=== PATIENT | female | born 1965 | race Caucasian/White ===

== ENCOUNTER 2018-03-22 14:29 | Emergency (ER) | payer OTHER ==
--- NOTE | 2018-03-22 14:37 | PDOC ---
History of Present Illness - General Chief Complaint: Back Pain Stated Complaint: back pain - History of Present Illness Initial Comments: The pt is a 53F w/ a history of migraines who presents for evaluation of 1.5 wks of L lower back pain, stabbing, worse w/ movement, non-radiating 5/10 initally to 10/10 today. She states the pain was initially intermittent but is now constant. She states she is reasonably comfortable while sitting and still but the pain is now unbearable when standing from sitting. She has tried Naproxen, heating/icy pads, and stretches w/o relief. She reports a history of back pain prior to menses, but this is worse than ever before. Additionally, the pain usually subsides with the initiation of menses and she is on her third day currently. Denies fevers/chills, BOND, vision changes, chest pain, SOB, N/V/C/D, dysuria, hematuria, or changes in sensation PCP: Dr. Maryam Fall 03/22/18 14:50 Past History - Past Medical History Allergies/Adverse Reactions: Allergies Allergy/AdvReac Type Severity Reaction Status Date / Time No Known Allergies Allergy Verified 03/22/18 14:57 Home Medications: Ambulatory Orders Sumatriptan Succinate [Imitrex] 50 mg PO BID PRN [facility] 2 05/31/15 Diazepam [Valium] 5 mg PO BID #6 tablet [facility] 2 03/22/18 Naproxen 375 mg PO QID PRN 03/22/18 Tramadol HCl 50 mg PO BID #6 tablet [facility] 2 03/22/18 Anemia: No Asthma: No Cancer: No Cardiac Disorders: No CVA: No COPD: No CHF: No Dementia: No Diabetes: No GI Disorders: Yes (Hx of N/V Diarrhea after vacation in [place]) Disorders: No HTN: No Hypercholesterolemia: No Kidney Stones: Yes Liver Disease: No Psychiatric Problems: Yes (ANXIETY/DEPRESSION) Seizures: No Thyroid Disease: No - Surgical History Cholecystectomy: Yes - Suicide/Smoking/Psychosocial Hx Smoking History: Never smoked Have you smoked in the past 12 months: No Hx Alcohol Use: No Drug/Substance Use Hx: No Substance Use Type: None Hx Substance Use Treatment: No Review of Systems - Review of Systems Able to Perform ROS?: Yes Comments:: GENERAL/CONSTITUTIONAL: No fever or chills. No weakness HEAD, EYES, EARS, NOSE AND THROAT: No change in vision. No ear pain or discharge. No sore throat CARDIOVASCULAR: No chest pain or shortness of breath RESPIRATORY: Denies cough, hemoptysis GASTROINTESTINAL: No nausea, vomiting, diarrhea or constipation GENITOURINARY: No dysuria, frequency, or change in urination. MUSCULOSKELETAL: per HPI SKIN: No rash NEUROLOGIC: No headache, vertigo, loss of consciousness, or change in strength/ sensation ENDOCRINE: No increased thirst. No abnormal weight change HEMATOLOGIC/LYMPHATIC: No anemia, easy bleeding, or history of blood clots ALLERGIC/IMMUNOLOGIC: No hives or skin allergy 03/22/18 14:37 Is the patient limited Czech proficient: No *Physical Exam - Vital Signs Vital Signs Temp Pulse Resp BP Pulse Ox 98.5 F 94 H 18 152/93 100 03/22/18 14:30 03/22/18 14:30 03/22/18 14:30 03/22/18 14:30 03/22/18 14:30 03/22/18 17:19 - Physical Exam Comments: GENERAL: Awake, alert, and fully oriented, in no acute distress HEAD: No signs of trauma, normocephalic, atraumatic EYES: PERRLA, EOMI, sclera anicteric, conjunctiva clear ENT: Hearing grossly normal, nares patent, oropharynx clear without exudates. Moist mucosa LUNGS: No distress, speaks full sentences, clear to auscultation bilaterally HEART: Regular rate and rhythm, normal S1 and S2, no murmurs appreciated, peripheral pulses normal and equal bilaterally ABDOMEN: Soft, nontender, normoactive bowel sounds. No guarding, no rebound. No masses BACK: L lateral lumbar back pain/TTP that is worse when patient stands; unable to ambulate w/ normal gait 2/2 pain; pain worse with L straight leg raise EXTREMITIES : Normal inspection, Normal range of motion, no edema. No clubbing or cyanosis NEUROLOGICAL: Cranial nerves II through XII grossly intact. Normal speech, no focal sensorimotor deficits SKIN: Warm, Dry, normal turgor, no rashes or lesions noted 03/22/18 14:37 ED Treatment Course - LABORATORY CBC & Chemistry Diagram: 03/22/18 15:25 03/22/18 15:25 Medical Decision Making - Medical Decision Making The patient is a 53F w/ a history of migraines who presents for evaluation of 1.5 wks of non-radiating, sharp, L lower back pain. ED Course CMP, CBC, UA, Upreg CT A&P w/ IV contrast 03/22/18 15:20 No leukocytosis No anemia Lytes wnl No ANIRUDH LFTs wnl UPreg neg UA w/o evidence of UTI 03/22/18 17:20 CT w/o evidence of acute pathology 03/22/18 17:43 Rx for Valium and Tramadol Discharge instructions and return precautions given Plan for D/C w/ PCP f/u Patient in agreement and verbalized understanding Dispo: Home *DC/Admit/Observation/Transfer Diagnosis at time of Disposition: Back pain Qualifiers: Back pain location: low back pain Chronicity: acute Back pain laterality: left Sciatica presence: without sciatica Qualified Code(s): M54.5 - Low back pain - Discharge Dispostion Disposition: HOME Condition at time of disposition: Stable Decision to Admit order: No - Prescriptions Prescriptions: Diazepam [Valium] 5 mg PO BID #6 tablet MDD 2 Tramadol HCl 50 mg PO BID #6 tablet MDD 2 - Referrals Referrals: Maryam Fall [Other] - Patient Instructions Printed Discharge Instructions: DI for Low Back Pain Additional Instructions: You were seen in the Emergency Department today for evaluation of lower back pain. Your labs were normal and your CT scan was negative for acute findings. You were given a prescription for Tramadol and Valium, take as directed. You may also take Naproxen 500mg every 12 hours. Review the handout provided at discharge. Follow up with your primary care provider, call for an appointment tomorrow. Return to the Emergency Department if you develop fevers/chills, vision changes , worsening pain, bowel or bladder incontinence, or any new/concerning symptoms. - Post Discharge Activity Forms/Work/School Notes: Back to Work
[2018-03-22 14:55] VITALS: TEMP 98.5; BMI 27.4
[2018-03-22] MEDS ORDERED: ACETAMINOPHEN 325 MG TABLET (FP) PO ONE (15:11)
[2018-03-22] MEDS ORDERED: diazePAM 2 MG TABLET PO ONE (15:12)
[2018-03-22] MEDS ORDERED: KETOROLAC TROMETHAMINE 30 MG/1 ML VIAL IM ONE (15:13)
[2018-03-22] MEDS ORDERED: ACETAMINOPHEN 325 MG TABLET (FP) ONE (15:15)
[2018-03-22] MEDS ORDERED: KETOROLAC TROMETHAMINE 30 MG/1 ML VIAL ONE (15:16)
[2018-03-22] MEDS ORDERED: diazePAM 2 MG TABLET ONE (15:16)
[2018-03-22] MEDS ORDERED: KETOROLAC TROMETHAMINE 30 MG/1 ML VIAL IVPUSH ONE (15:18)
[2018-03-22] MEDS ORDERED: SODIUM CHLORIDE 0.9% 500 ML INFUS.BAG IV ONE (15:23)
[2018-03-22 15:36] LABS: BASO % 0.8 % (0-2.0); EOS % 3.2 % (0-4.5); HEMATOCRIT 38.1 % (32.4-45.2); HEMOGLOBIN 12.5 GM/dl (10.7-15.3); LYMPH % 31.5 % (8-40); MCH 28.6 pg (25.7-33.7); MCHC 32.7 g/dl (32.0-36.0); MEAN CELL VOLUME 87.4 fl (80-96); MEAN PLT VOLUME 7.7 fl (7.5-11.1); MONO % 7.1 % (3.8-10.2); NEUT % 57.4 % (42.8-82.8); PLATELET COUNT 330 K/MM3 (134-434); RBC 4.36 M/mm3 (3.60-5.2); RDW 13.3 % (11.6-15.6); WHITE BLOOD COUNT 5.7 K/mm3 (4.0-10.8)
[2018-03-22 15:37] LABS: URINE APPEARANCE Clear; URINE BILIRUBIN Negative (NEGATIVE); URINE COLOR Yellow; URINE GLUCOSE (UA) Negative (NEGATIVE); URINE KETONE Negative (NEGATIVE); URINE LEUK ESTERASE Negative (NEGATIVE); URINE NITRITE Negative (NEGATIVE); URINE PROTEIN Negative (NEGATIVE); URINE UROBILINOGEN 0.2 (0.2-1.0)
[2018-03-22 15:49] LABS: ALK PHOS 75 U/L (45-117); ANION GAP 9 MMOL/L (8-16); BILIRUBIN,TOTAL 0.4 mg/dl (0.2-1); BLOOD UREA NITROGEN 11 mg/dl (7-18); CALCIUM 9.3 mg/dl (8.5-10); CHLORIDE 102 mmol/L (98-107); CO2 25 mmol/L (21-32); CREATININE 0.6 mg/dl (0.55-1.3); GLUCOSE,RANDOM 104 mg/dl (74-106); POTASSIUM 4.1 mmol/L (3.5-5.1); SGOT/AST 23 U/L (15-37); SGPT/ALT 23 U/L (13-61); SODIUM 136 mmol/L (136-145)
--- NOTE | 2018-03-22 17:33 | PDOC ---
Attending Attestation - Resident Resident Name: EdHarpreet locke - ED Attending Attestation I have performed the following: I have examined & evaluated the patient, The case was reviewed & discussed with the resident, I agree w/resident's findings & plan, Exceptions are as noted - HPI HPI: 03/22/18 17:32 Reviewed residents HPI - Physicial Exam PE: 03/22/18 17:32 Reviewed residents PE - Medical Decision Making 03/22/18 17:32 53 years old with moderate to severe left mid paraspinal discomfort progressively worsening over the course of the week. No weakness no numbness no significant abdominal tenderness but some reproducible left-sided abdominal tenderness on examination Given progressively worsening symptomatology we will CT abdomen pelvis pain meds observe and reassess 03/22/18 19:07 Reevaluation patient feels better after pain medication CAT scan negative for acute pathology no fever no white count urinalysis is clean at this time history examination most consistent with musculoskeletal pain We'll treat with by mouth tramadol Valium as an outpatient for 3 days she will call her doctor tomorrow for follow-up she'll return to ED for any severe worsening symptoms or for any concerns.
[2018-03-22 17:43] LABS: URINE RBC 0-2 /hpf (0-3)
[2018-03-22 17:51] VITALS: BP 134/92; PULSE 78
== END 2018-03-22 18:04 | disposition home or self-care (01) ==
LOC: FER 14:29
PROC: 3E0333Z Introduction of Anti-inflammatory into Peripheral Vein, Percutaneous Approach (ICD-10-PCS; principal; 2018-03-22)
PROC: 3E0337Z Introduction of Electrolytic and Water Balance Substance into Peripheral Vein, Percutaneous Approach (ICD-10-PCS; 2018-03-22)
DX: M54.5 Low back pain (principal); F41.8 Other specified anxiety disorders
CPT/HCPCS: 36415; 74177-TC; 80053; 81003; 81015; 84703; 85025; 99283-25

== ENCOUNTER 2020-01-24 17:32 | Emergency (ER) | payer OTHER | END 2020-01-24 18:02 | disposition home or self-care (01) | LOC: JVIRT 17:32 | DX: Z11.59 Encounter for screening for other viral diseases (principal) | CPT/HCPCS: C9803; Q3014-GT; U0003 ==

== ENCOUNTER 2020-06-26 11:17 | Emergency (ER) | payer OTHER ==
[2020-06-26] MEDS ORDERED: IBUPROFEN 400 MG TABLET (FP) PO ONE ×2 (11:24→11:28)
[2020-06-26 11:28] VITALS: BP 169/109; PULSE 88; TEMP 98.9; BMI 25.0
[2020-06-26] MEDS ORDERED: PSEUDOEPHEDRINE HCL 30 MG TABLET PO ONE (11:36)
[2020-06-26] MEDS ORDERED: PSEUDOEPHEDRINE HCL 30 MG TABLET ONE (11:39)
== END 2020-06-26 12:15 | disposition home or self-care (01) ==
LOC: FER 11:17
DX: R51.9 Headache, unspecified (principal); R53.83 Other fatigue; R50.9 Fever, unspecified; Z11.52 Encounter for screening for COVID-19
CPT/HCPCS: 99283-25; C9803; U0003; U0005

== ENCOUNTER 2020-11-07 17:23 | Inpatient (IN) | payer OTHER ==
[2020-11-07] MEDS ORDERED: ONDANSETRON 4 MG/2 ML VIAL ONE (17:50)
[2020-11-07 18:15] LABS: BASO % 1.3 % (0-2.0); EOS % 2.4 % (0-4.5); HEMATOCRIT 37.3 % (32.4-45.2); HEMOGLOBIN 12.5 GM/dl (10.7-15.3); LYMPH % 28.5 % (8-40); MCH 28.7 pg (25.7-33.7); MCHC 33.5 g/dl (32.0-36.0); MEAN CELL VOLUME 85.6 fl (80-96); MEAN PLT VOLUME 7.4 fl (7.5-11.1); MONO % 0.2 % (3.8-10.2); NEUT % 67.6 % (42.8-82.8); PLATELET COUNT 215 10^3/uL (134-434); RBC 4.36 M/mm3 (3.60-5.2); RDW 12.2 % (11.6-15.6)
[2020-11-07 18:16] LABS: WHITE BLOOD COUNT 1.6 K/mm3 (4.0-10.8)
[2020-11-07 18:27] LABS: ALBUMIN 3.8 g/dl (3.4-5.0); BILIRUBIN,TOTAL 0.9 mg/dl (0.2-1); CALCIUM 8.8 mg/dl (8.5-10); CREATININE 0.7 mg/dl (0.55-1.3); TOT PROT 7.4 g/dl (6.4-8.2)
[2020-11-07] MEDS ORDERED: SODIUM CHLORIDE 500 ML IV STA (18:28)
[2020-11-07] MEDS ORDERED: SODIUM CHLORIDE 1,000 ML IV STA (18:34)
[2020-11-07] MEDS ORDERED: ONDANSETRON 4 MG/2 ML VIAL IVPB ONE (19:04)
[2020-11-07] MEDS ORDERED: ACETAMINOPHEN INJECTION 100 ML IVPB ONE (19:12)
[2020-11-07 19:25] LABS: INR 1.36 (0.82-1.09); PROTHROMBIN TIME (PATIENT) 14.9 SEC (10.2-13.0)
[2020-11-07 19:53] LABS: EPITHELIAL CELLS RARE /hpf
[2020-11-08] MEDS ORDERED: PIPERACILLIN/TAZOB 3.375 GM 3.375 GM/50 ML BAG IVPB ONE (00:20)
[2020-11-08] MEDS ORDERED: SODIUM CHLORIDE 0.9% 1000 ML INFUS.BAG IV ONE (00:21)
[2020-11-08] MEDS ORDERED: METOCLOPRAMIDE HCL INJECTION 10 MG/2 ML VIAL IVPUSH ONE (00:21)
[2020-11-08] MEDS ORDERED: PIPERACILLIN/TAZOBACTAM 3.375 GM VIAL IVPB ONE ×3 (00:32→19:50)
[2020-11-08] MEDS ORDERED: METOCLOPRAMIDE HCL INJECTION 10 MG/2 ML VIAL ONE (00:33)
[2020-11-08] MEDS ORDERED: DEXTROSE 5%-0.45% SALINE 1,000 ML IV SCH (01:45)
[2020-11-08] MEDS: ACETAMINOPHEN 1000 MG/100 ML VIAL (NON FORMULARY) IVPB PRN ×2 (03:07→15:05)
[2020-11-08 03:17] VITALS: BMI 24.7
[2020-11-08 08:11] LABS: BASO % 0.7 % (0-2.0); EOS % 2.3 % (0-4.5); HEMATOCRIT 30.1 % (32.4-45.2); HEMOGLOBIN 10.2 GM/dl (10.7-15.3); MCH 29.1 pg (25.7-33.7); MCHC 33.8 g/dl (32.0-36.0); MEAN PLT VOLUME 7.4 fl (7.5-11.1); MONO % 5.1 % (3.8-10.2); NEUT % 81.9 % (42.8-82.8); PLATELET COUNT 178 10^3/uL (134-434); RBC 3.49 M/mm3 (3.60-5.2); RDW 12.2 % (11.6-15.6); WHITE BLOOD COUNT 6.3 K/mm3 (4.0-10.8)
[2020-11-08 08:34] LABS: ALBUMIN 2.7 g/dl (3.4-5.0); CALCIUM 7.4 mg/dl (8.5-10); CREATININE 0.7 mg/dl (0.55-1.3); TOT PROT 5.5 g/dl (6.4-8.2)
[2020-11-08] MEDS ORDERED: DEXTROSE 5%-WATER - 50 ML IVPB ONE (09:04)
[2020-11-08] MEDS: KCL 10 MEQ IVPB 10 MEQ/100 ML INFUS.BAG IVPB SCH ×2 (09:24→10:30)
[2020-11-08] MEDS: HEPARIN NA (PORCINE) 5,000 UNITS/ML 1ML VIAL SQ SCH ×3 (09:24→21:57)
[2020-11-08] MEDS ORDERED: PIPERACILLIN/TAZOB 3.375 GM 3.375 GM in DEXTROSE 5%-WATER - 50 ML IVPB SCH (10:00)
[2020-11-08 10:15] LABS: MAGNESIUM 1.8 mg/dL (1.8-2.4)
[2020-11-08] MEDS ORDERED: ONDANSETRON 4 MG/2 ML VIAL IVPUSH PRN (17:42)
[2020-11-08] MEDS ORDERED: ROCURONIUM BROMIDE 50 MG/5 ML SYRINGE ONE (17:49)
[2020-11-08] MEDS ORDERED: PROPOFOL 20 ML ONE (17:49)
[2020-11-08] MEDS: PIPERACILLIN/TAZOB 3.375 GM 3.375 GM in DEXTROSE 5%-WATER - 50 ML IVPB SCH (19:13)
[2020-11-08] MEDS ORDERED: BUPIVACAINE LIPOSOME/PF (EXPAREL) 266 MG/20 ML VIAL ONE (19:18)
[2020-11-08] MEDS ORDERED: BUPIVACAINE HCL/PF 2.5 MG/ML - 30 ML VIAL IJ ONE (19:19)
[2020-11-08] MEDS ORDERED: ACETAMINOPHEN INJECTION 100 ML IVPB ONE (19:19)
[2020-11-08] MEDS ORDERED: DEXAMETHASONE SOD PHOSPHATE 4 MG/1 ML VIAL ONE (19:44)
[2020-11-08] MEDS ORDERED: HYDROmorphone HCL/PF 1 MG/ML VIAL ONE (20:00)
[2020-11-08] MEDS ORDERED: KETOROLAC TROMETHAMINE 30 MG/1 ML VIAL ONE (20:15)
[2020-11-08] MEDS ORDERED: ONDANSETRON 4 MG/2 ML VIAL ONE (20:20)
[2020-11-08] MEDS ORDERED: NEOSTIGMINE METHYLSULFATE 0.5 MG/ML - 10 ML MDV ONE (20:25)
[2020-11-08] MEDS ORDERED: GLYCOPYRROLATE 0.2 MG/1 ML VIAL ONE (20:29)
[2020-11-08] MEDS: LACTATED RINGERS SOLUTION 1,000 ML IV SCH (21:58)
[2020-11-09] MEDS ORDERED: PIPERACILLIN/TAZOBACTAM 3.375 GM VIAL IVPB ONE ×3 (00:42→16:19)
[2020-11-09] MEDS ORDERED: DEXTROSE 5%-WATER - 50 ML IVPB ONE ×3 (00:42→16:19)
[2020-11-09] MEDS: PIPERACILLIN/TAZOB 3.375 GM 3.375 GM in DEXTROSE 5%-WATER - 50 ML IVPB SCH ×3 (01:32→17:36)
[2020-11-09] MEDS: oxyCODONE HCL 5 MG TABLET PO PRN ×2 (04:46→20:37)
[2020-11-09 08:07] LABS: BASO % 0.2 % (0-2.0); EOS % 1.9 % (0-4.5); HEMATOCRIT 31.3 % (32.4-45.2); HEMOGLOBIN 10.3 GM/dl (10.7-15.3); LYMPH % 8.5 % (8-40); MCH 28.8 pg (25.7-33.7); MCHC 32.8 g/dl (32.0-36.0); MEAN CELL VOLUME 87.7 fl (80-96); MEAN PLT VOLUME 8.2 fl (7.5-11.1); MONO % 4.7 % (3.8-10.2); NEUT % 84.7 % (42.8-82.8); PLATELET COUNT 146 10^3/uL (134-434); RBC 3.57 M/mm3 (3.60-5.2); RDW 12.1 % (11.6-15.6); WHITE BLOOD COUNT 4.2 K/mm3 (4.0-10.8)
[2020-11-09 08:23] LABS: ALBUMIN 2.5 g/dl (3.4-5.0); BILIRUBIN,TOTAL 0.8 mg/dl (0.2-1); CALCIUM 7.7 mg/dl (8.5-10); CREATININE 0.6 mg/dl (0.55-1.3); TOT PROT 5.6 g/dl (6.4-8.2)
[2020-11-09] MEDS: ACETAMINOPHEN 325 MG TABLET (FP) PO PRN ×2 (10:28→20:36)
[2020-11-09] MEDS: HEPARIN NA (PORCINE) 5,000 UNITS/ML 1ML VIAL SQ SCH ×2 (10:28→21:32)
[2020-11-09] MEDS: INSULIN SLIDING SCALE (NOVOLOG) 1 VIAL SQ SCH ×2 (16:47→21:32)
[2020-11-09] MEDS: GABAPENTIN 300 MG CAPSULE PO SCH (21:32)
[2020-11-09] MEDS: LACTATED RINGERS SOLUTION 1,000 ML IV SCH (21:32)
[2020-11-10] MEDS ORDERED: PIPERACILLIN/TAZOBACTAM 3.375 GM VIAL IVPB ONE ×3 (00:07→15:36)
[2020-11-10] MEDS ORDERED: DEXTROSE 5%-WATER - 50 ML IVPB ONE ×3 (00:08→15:36)
[2020-11-10] MEDS: ACETAMINOPHEN 325 MG TABLET (FP) PO PRN (01:10)
[2020-11-10] MEDS: PIPERACILLIN/TAZOB 3.375 GM 3.375 GM in DEXTROSE 5%-WATER - 50 ML IVPB SCH ×3 (01:10→18:39)
[2020-11-10] MEDS: INSULIN SLIDING SCALE (NOVOLOG) 1 VIAL SQ SCH ×4 (07:13→21:33)
[2020-11-10] MEDS: SUMAtriptan SUCCINATE 50 MG TABLET PO SCH ×2 (07:28→21:33)
[2020-11-10 08:21] LABS: BASO % 0.4 % (0-2.0); EOS % 1.5 % (0-4.5); HEMATOCRIT 31.1 % (32.4-45.2); HEMOGLOBIN 10.1 GM/dl (10.7-15.3); MCH 28.4 pg (25.7-33.7); MCHC 32.4 g/dl (32.0-36.0); MEAN CELL VOLUME 87.7 fl (80-96); MEAN PLT VOLUME 8.7 fl (7.5-11.1); NEUT % 67.1 % (42.8-82.8); PLATELET COUNT 170 10^3/uL (134-434); RBC 3.55 M/mm3 (3.60-5.2); RDW 12.5 % (11.6-15.6); WHITE BLOOD COUNT 4.1 K/mm3 (4.0-10.8)
[2020-11-10 08:31] LABS: ALBUMIN 2.7 g/dl (3.4-5.0); BILIRUBIN,TOTAL 0.7 mg/dl (0.2-1); CALCIUM 8.2 mg/dl (8.5-10); CREATININE 0.8 mg/dl (0.55-1.3); TOT PROT 5.8 g/dl (6.4-8.2)
[2020-11-10 10:09] LABS: IRON SERUM 29 ug/dL (50-175); TOTAL IRON BINDING CAPACITY 180 ug/dL (250-450)
[2020-11-10] MEDS: HEPARIN NA (PORCINE) 5,000 UNITS/ML 1ML VIAL SQ SCH ×2 (10:24→21:33)
[2020-11-10] MEDS: oxyCODONE HCL 5 MG TABLET PO PRN (16:02)
[2020-11-10] MEDS: LACTATED RINGERS SOLUTION 1,000 ML IV SCH (18:39)
[2020-11-10] MEDS: GABAPENTIN 300 MG CAPSULE PO SCH (21:33)
[2020-11-11] MEDS ORDERED: PIPERACILLIN/TAZOBACTAM 3.375 GM VIAL IVPB ONE (00:26)
[2020-11-11] MEDS: PIPERACILLIN/TAZOB 3.375 GM 3.375 GM in DEXTROSE 5%-WATER - 50 ML IVPB SCH ×3 (01:46→17:26)
[2020-11-11] MEDS: INSULIN SLIDING SCALE (NOVOLOG) 1 VIAL SQ SCH ×2 (07:02→11:50)
[2020-11-11] MEDS: ACETAMINOPHEN 325 MG TABLET (FP) PO PRN ×2 (08:59→21:41)
[2020-11-11] MEDS ORDERED: SUMAtriptan SUCCINATE 50 MG TABLET PO PRN (09:10)
[2020-11-11] MEDS ORDERED: SUMAtriptan SUCCINATE 50 MG TABLET PO ONE (09:20)
[2020-11-11 09:37] LABS: BASO % 1.7 % (0-2.0); EOS % 2.7 % (0-4.5); HEMATOCRIT 31.2 % (32.4-45.2); HEMOGLOBIN 10.3 GM/dl (10.7-15.3); MCH 28.6 pg (25.7-33.7); MEAN CELL VOLUME 86.7 fl (80-96); MEAN PLT VOLUME 8.3 fl (7.5-11.1); MONO % 9.5 % (3.8-10.2); NEUT % 56.1 % (42.8-82.8); PLATELET COUNT 205 10^3/uL (134-434); RDW 12.3 % (11.6-15.6); WHITE BLOOD COUNT 4.2 K/mm3 (4.0-10.8)
[2020-11-11 10:34] LABS: ALBUMIN 2.7 g/dl (3.4-5.0); BILIRUBIN,TOTAL 0.6 mg/dl (0.2-1); CALCIUM 8.3 mg/dl (8.5-10); CREATININE 0.7 mg/dl (0.55-1.3)
[2020-11-11] MEDS: HEPARIN NA (PORCINE) 5,000 UNITS/ML 1ML VIAL SQ SCH ×2 (10:39→23:44)
[2020-11-11] MEDS ORDERED: NAPROXEN 500 MG TABLET PO ONE (11:17)
[2020-11-11] MEDS: GABAPENTIN 300 MG CAPSULE PO SCH (21:39)
[2020-11-12] MEDS: PIPERACILLIN/TAZOB 3.375 GM 3.375 GM in DEXTROSE 5%-WATER - 50 ML IVPB SCH ×3 (01:02→18:26)
[2020-11-12 08:32] LABS: BASO % 0.5 % (0-2.0); EOS % 3.7 % (0-4.5); HEMATOCRIT 32.6 % (32.4-45.2); HEMOGLOBIN 10.6 GM/dl (10.7-15.3); LYMPH % 21.1 % (8-40); MCHC 32.6 g/dl (32.0-36.0); MEAN CELL VOLUME 85.9 fl (80-96); MEAN PLT VOLUME 7.4 fl (7.5-11.1); MONO % 12.7 % (3.8-10.2); PLATELET COUNT 261 10^3/uL (134-434); RBC 3.79 M/mm3 (3.60-5.2); RDW 12.2 % (11.6-15.6)
[2020-11-12 08:46] LABS: ALBUMIN 2.7 g/dl (3.4-5.0); BILIRUBIN,TOTAL 0.5 mg/dl (0.2-1); CALCIUM 8.5 mg/dl (8.5-10); CREATININE 0.7 mg/dl (0.55-1.3); TOT PROT 6.2 g/dl (6.4-8.2)
[2020-11-12] MEDS ORDERED: PIPERACILLIN/TAZOBACTAM 3.375 GM VIAL IVPB ONE (09:51)
[2020-11-12] MEDS ORDERED: DEXTROSE 5%-WATER - 50 ML IVPB ONE (09:52)
[2020-11-12] MEDS: HEPARIN NA (PORCINE) 5,000 UNITS/ML 1ML VIAL SQ SCH ×2 (10:47→21:42)
[2020-11-12] MEDS: GABAPENTIN 300 MG CAPSULE PO SCH (21:42)
[2020-11-12] MEDS: ACETAMINOPHEN 325 MG TABLET (FP) PO PRN (21:43)
[2020-11-12] MEDS ORDERED: SUMAtriptan SUCCINATE 50 MG TABLET PO ONE (23:15)
[2020-11-13] MEDS ORDERED: PIPERACILLIN/TAZOBACTAM 3.375 GM VIAL IVPB ONE ×3 (00:06→17:54)
[2020-11-13] MEDS ORDERED: DEXTROSE 5%-WATER - 50 ML IVPB ONE ×3 (00:07→17:54)
[2020-11-13] MEDS: PIPERACILLIN/TAZOB 3.375 GM 3.375 GM in DEXTROSE 5%-WATER - 50 ML IVPB SCH ×3 (01:31→18:02)
[2020-11-13] MEDS: HEPARIN NA (PORCINE) 5,000 UNITS/ML 1ML VIAL SQ SCH ×2 (09:28→21:25)
[2020-11-13] MEDS ORDERED: NAPROXEN 500 MG TABLET PO ONE (20:30)
[2020-11-13] MEDS ORDERED: SUMAtriptan SUCCINATE 50 MG TABLET PO ONE (20:30)
[2020-11-13] MEDS: GABAPENTIN 300 MG CAPSULE PO SCH (21:21)
[2020-11-14] MEDS ORDERED: PIPERACILLIN/TAZOBACTAM 3.375 GM VIAL IVPB ONE ×2 (02:02→09:18)
[2020-11-14] MEDS ORDERED: DEXTROSE 5%-WATER - 50 ML IVPB ONE ×2 (02:03→09:19)
[2020-11-14] MEDS: PIPERACILLIN/TAZOB 3.375 GM 3.375 GM in DEXTROSE 5%-WATER - 50 ML IVPB SCH ×2 (02:23→09:59)
[2020-11-14] MEDS: HEPARIN NA (PORCINE) 5,000 UNITS/ML 1ML VIAL SQ SCH (09:59)
[2020-11-14 14:18] VITALS: TEMP 98.5
[2020-11-14 14:19] VITALS: BP 114/57; PULSE 73
== END 2020-11-14 16:31 | disposition home or self-care (01) | DRG 225 ==
LOC: FER 17:23 → EDSTATUS 21:53 → FM/S 11-08 01:44 → INTOOBSV 11-08 01:44 → UNDOADMOB 11-08 01:44 → FM/S 11-08 11:39 → FASUSAT 11-08 21:26 → FM/S 11-08 21:26 → FASUSAT 11-09 12:22 → FM/S 11-09 12:23
PROVIDERS: ADMIT Internal Medicine; ATTEND Nurse Practitioner Acute Care
PROC: 0DTJ4ZZ Resection of Appendix, Percutaneous Endoscopic Approach (ICD-10-PCS; principal; 2020-11-08 19:46)
DX: K35.80 Unspecified acute appendicitis (principal); G43.909 Migraine, unspecified, not intractable, without status migrainosus; M54.9 Dorsalgia, unspecified; R78.81 Bacteremia; R73.9 Hyperglycemia, unspecified
CPT/HCPCS: 36415; 71045-TC-FY; 74177-TC; 80053; 81003; 81015; 82150; 82607; 82728; 82746; 82962; 83036; 83540; 83550; 83605; 83690; 83735; 85025; 85610; 85651; 86140; 86850; 86900; 86901; 87040; 87086; 87186; 88304-TC; 93005; 94760; 99285-25; C9803; J0131; J1644; Q9967; U0003; U0005

== ENCOUNTER 2021-10-15 04:51 | Day surgery (SDC) | payer OTHER ==
[2021-10-15 09:26] VITALS: BMI 24.3
[2021-10-15 11:22] VITALS: TEMP 97.8
[2021-10-15 12:20] LABS: CALCIUM 9.1 mg/dL (8.5-10.1)
[2021-10-15 12:21] LABS: MAGNESIUM 2.3 mg/dL (1.8-2.4)
[2021-10-15 12:24] LABS: CREATININE 0.7 mg/dL (0.55-1.3); PHOSPHOROUS 4.4 mg/dL (2.5-4.9)
[2021-10-15 12:30] VITALS: BP 116/97; PULSE 52; RESP 18
== END 2021-10-15 13:05 | disposition home or self-care (01) ==
LOC: JASU-ENDO 04:51
PROVIDERS: ATTEND Internal Medicine Gastroenterology
PROC: 0DJD8ZZ Inspection of Lower Intestinal Tract, Via Natural or Artificial Opening Endoscopic (ICD-10-PCS; principal; 2021-10-15 10:15)
DX: Z12.11 Encounter for screening for malignant neoplasm of colon (principal); K64.8 Other hemorrhoids; K57.30 Diverticulosis of large intestine without perforation or abscess without bleeding
CPT/HCPCS: 36415; 80048; 83735; 84100; 93005; 93010

== ENCOUNTER → 2023-03-18 | Day surgery (SDC) | payer OTHER ==
[2023-03-11 15:51] VITALS: BMI 23.5
[~2023-03-18] MED LIST: BUPIVACAINE HCL/PF 0.25% (2.5MG/ML) 10 ML VIAL ONE; LIDOCAINE HCL 2% (20ML MULTI-DOSE VIAL) ONE; MIDAZOLAM HCL 2 MG/2 ML SINGLE DOSE VIAL ONE; PROPOFOL 20 ML ONE
[2023-03-18 08:26] VITALS: RESP 16; TEMP 96.4
[2023-03-18 08:36] VITALS: BP 99/57; PULSE 62
== END | disposition home or self-care (01) ==
LOC: FASU 06:16
PROVIDERS: ATTEND Orthopaedic Surgery Hand Surgery
PROC: 0LN70ZZ Release Right Hand Tendon, Open Approach (ICD-10-PCS; principal; 2023-03-18 07:57)
DX: M65.311 Trigger thumb, right thumb (principal)

== ENCOUNTER 2023-09-27 13:30 | Emergency (ER) | payer SELFPAY ==
[2023-09-27 13:52] VITALS: BP 187/92; PULSE 92; RESP 18; TEMP 98.2; BMI 25.0
[2023-09-27] MEDS ORDERED: ACETAMINOPHEN 325 MG TABLET (FP) ONE (14:11)
[2023-09-27] MEDS: ACETAMINOPHEN 325 MG TABLET (FP) PO ONE (14:13)
[2023-09-27] MEDS ORDERED: LIDOCAINE 5% TOPICAL PATCH ONE (14:17)
[2023-09-27] MEDS: LIDOCAINE 5% TOPICAL PATCH TP ONE (14:22)
[2023-09-27] MEDS ORDERED: LIDOCAINE PATCH REMOVAL MC ONE (22:00)
== END 2023-09-27 15:12 | disposition home or self-care (01) ==
LOC: FER 13:30
DX: S63.92XA Sprain of unspecified part of left wrist and hand, initial encounter (principal); R51.9 Headache, unspecified; M54.2 Cervicalgia; M54.6 Pain in thoracic spine; V43.32XA Unspecified car occupant injured in collision with other type car in nontraffic accident, initial encounter
CPT/HCPCS: 73070-TC-LT-FY; 73090-TC-LT-FY; 73110-TC-LT-FY; 99283-25